=== PATIENT | female | born 1960 | race Two or more races ===

== ENCOUNTER 2016-09-02 15:22 | Outpatient (CLI) | payer BC ==
[2016-09-06 20:18] LABS: *NEISSERIA GONORRHOEAE NAA Negative (Negative); CHLAMYDIA TRACHOMATIS NAA Negative (Negative)
== END 2016-09-02 23:59 | disposition home or self-care (01) ==
LOC: LAB 15:22
PROVIDERS: ATTEND Family Medicine
DX: N76.0 Acute vaginitis (principal); N39.0 Urinary tract infection, site not specified
CPT/HCPCS: 36415; 87086-TC; 87210-TC; 87491; 87591

== ENCOUNTER 2016-09-09 09:42 | Inpatient (IN) | payer BC ==
[~2016-09-09] VITALS: Ht 152.4 cm; Wt 63.5 kg
--- NOTE | 2016-09-09 09:45 | NUR ---
PT AMBULATORY DYSURIA AND URINARY DISCOMFORT X [address] ARVIN MADRIGAL URINE. PLACED ON MONITOR. VSS.
[2016-09-09] MEDS ORDERED: IV NS 0.9% 1,000 ML BAG IV ONE (10:00)
--- NOTE | 2016-09-09 10:00 | NUR ---
BLOOD SAMPLE COLLECTED SENT TO LAB IV ACCESS LAC #18 PATENT AND FLUSHING
[2016-09-09 10:02] LABS: BASOPHILS % (AUTO) 0.3 % (0.0-2.0); EOSINOPHILS # (AUTO) 0.1 /CMM (0.0-0.7); EOSINOPHILS % (AUTO) 1.2 % (0.0-6.0); HEMATOCRIT 46 % (33-45); HEMOGLOBIN 14.9 g/dL (11.5-14.8); LYMPHOCYTES # (AUTO) 1.7 /CMM (0.8-4.8); LYMPHOCYTES % (AUTO) 28.9 % (20.0-44.0); MEAN CORPUSCULAR HEMOGLOBIN 29 PG (26.0-33.0); MEAN CORPUSCULAR HGB CONC 33 g/dl (31.0-36.0); MEAN CORPUSCULAR VOLUME 88 fL (82-100); MONOCYTES # (AUTO) 0.3 /CMM (0.1-1.30); MONOCYTES % (AUTO) 5.6 % (2.0-12.0); NEUTROPHILS # (AUTO) 3.9 /CMM (1.8-8.9); PLATELET COUNT (AUTO) 250 /CMM (150-450); RDW COEFFICIENT OF VARIATION 12.9 (11.5-15.0); RED BLOOD CELL COUNT(AUTO) 5.17 MIL/uL (4.0-5.2)
[2016-09-09] MEDS ORDERED: IV NS 0.9% 1,000 ML ONE (10:07)
[2016-09-09] MEDS ORDERED: IV SET PRIMARY PUMP SET 1 EA INFUS.SET MC ONE ×2 (10:07→17:36)
[2016-09-09 10:12] LABS: CARBON DIOXIDE 28 mmol/L (21-32); CHLORIDE 105 mmol/L (98-107); CREATININE 0.8 mg/dL (0.6-1.3); GFR 74 mL/min (>60); GLUCOSE 144 mg/dL (74-106); SODIUM SERUM 142 mmol/L (136-145); UREA NITROGEN, BLOOD 15 mg/dL (7-18)
--- NOTE | 2016-09-09 10:15 | NUR ---
URINE SAMPLE COLLECTED SENT TO LAB
[2016-09-09 10:19] LABS: APPEARANCE,URINE Cloudy (CLEAR); BILIRUBIN,URINE Negative (NEGATIVE); BLOOD, URINE Trace-lysed Ery/uL (NEGATIVE); COLOR,URINE Yellow (YELLOW); KETONES,URINE Negative (NEGATIVE); LEUKOCYTE ESTERASE ,URINE Large (NEGATIVE); NITRITE, URINE Positive (NEGATIVE); PROTEIN,URINE Negative (NEGATIVE); UGLUCOSE Negative (NEGATIVE); UROBILINOGEN,URINE 0.2 EU/dL (0.2)
[2016-09-09 10:25] LABS: INR 0.97 (0.87-1.13); PROTHROMBIN TIME 10.1 SECS (9.5-12.7)
[2016-09-09] MEDS ORDERED: MEROPENEM 1 G in IV NS 0.9% 100 ML IV ONE (10:30)
[2016-09-09] MEDS ORDERED: DOCU-270 PO (10:32)
[2016-09-09] MEDS ORDERED: CHOL20004 PO (10:32)
[2016-09-09] MEDS ORDERED: RALO60TA PO (10:32)
[2016-09-09 10:37] LABS: ADD URINE CULTURE YES; BACTERIA,URINE 1+ /HPF (None Seen); SQUAMOUS EPITHELIAL CELL,UR Few /HPF (None Seen); WBC,URINE 21-50 /HPF (0-3)
[2016-09-09 10:38] LABS: URINE AMORPHOUS PHOSPHATES Few /HPF (None Seen)
[2016-09-09 11:10] LABS: LACTIC ACID 2.3 mmol/L (0.4-2.0)
--- NOTE | 2016-09-09 11:33 | NUR ---
GAVE REPORT TO [facility] [id number] DR HAYES ADMITTING.
[2016-09-09 11:45] LABS: BILIRUBIN,DIRECT 0.1 mg/dL (0.0-0.2); BILIRUBIN,TOTAL 0.6 mg/dL (0.2-1.0)
--- NOTE | 2016-09-09 11:45 | NUR ---
RN NOTES RECEIVED FROM ER A 55 YEAR OLD FEMALE PER HOSPITAL BED WITH DX OF UTI UNDER THE SERVICE OF DR HAYES. PLACED COMFORTABLY. PATIENT IS AWAKE, ALERT AND ORIENTED. NOT IN ANY FORM OF DISTRESS. STILL WITH BURNING SENSATION UPON URINATION. NO FEVER. ON RA SATURATING AT 97% WITH NO SOB. WITH IV ACCESS ON LEFT AC GG 18 PATENT AND INTACT. AMBULATORY. ROUTINE ADMISSION CARE DONE. VSS. BODY CHECK DONE WITH SKI INTACT. NEEDS ANTICIPATED. CALL LIGHT PLACED WITHIN EASY REACH. NOTIFIED DR HAYES FOR ADMISSION ORDERS.
[2016-09-09] MEDS ORDERED: IMIPENEM/CILASTATIN 1,000 MG in IV NS 0.9% 250 ML IV SCH (12:00)
[2016-09-09] MEDS ORDERED: MAGNESIUM HYDROXIDE 30 ML UDC PO PRN (13:00)
[2016-09-09] MEDS ORDERED: ONDANSETRON HCL/PF 4 MG/2 ML VIAL IVP PRN (13:00)
[2016-09-09] MEDS ORDERED: HYDROCODONE/APAP 5/325MG 1 EACH TABLET PO PRN (13:00)
[2016-09-09] MEDS ORDERED: Z GUARD REMEDY 2 OZ OINT TP PRN (13:00)
[2016-09-09] MEDS ORDERED: CEFTRIAXONE 1 G in IV D5W 50 ML IV SCH (13:00)
[2016-09-09] MEDS ORDERED: ACETAMINOPHEN 325 MG TABLET PO PRN (13:00)
[2016-09-09] MEDS ORDERED: MAG HYDROX/AL HYDROX/SIMETH 30 ML UDC PO PRN (13:00)
[2016-09-09] MEDS ORDERED: ZOLPIDEM TARTRATE 5 MG TABLET PO PRN (13:00)
[2016-09-09 13:17] LABS: LACTIC ACID REFLEX 0.9 mmol/L (0.4-1.9)
[2016-09-09] MEDS: CHOLECALCIFEROL 1,000 UNIT TABLET (VIT D3) PO SCH (15:26)
[2016-09-09 16:00] VITALS: BP_SYST 102; BP_DIAS 57; BP_DIAS 98
[2016-09-09] MEDS: MEROPENEM 1 G in IV NS 0.9% 100 ML IV SCH (18:00)
--- NOTE | 2016-09-09 19:00 | NUR ---
MS RN OPENING NOTE PATIENT IS AWAKE, NO S/S OF DISTRESS, NO CHEST PAIN. NO SOB OR DISTRESS NOTED. IN STABLE CONDITION. SAFETY MEASURES IMPLEMENTED. IV INTACT NO S/S OF INFILTRATION NOTED. CALL LIGHT WITHIN REACH. ON LOW BED TO ENSURE SAFETY. WILL CONTINUE TO MONITOR
[2016-09-09 20:00] VITALS: BP 131/61
[2016-09-09] MEDS: IV NS 0.9% 1,000 ML IV PRN (21:38)
[2016-09-09] MEDS ORDERED: SECONDARY IV SET 1 EA INFUS.SET MC ONE (22:45)
[2016-09-10] MEDS: MEROPENEM 1 G in IV NS 0.9% 100 ML IV SCH ×3 (01:29→17:42)
--- NOTE | 2016-09-10 06:41 | NUR ---
MS RN CLOSING NOTES PATIENT COMFORTABLY IN BED ASLEEP AND EASILY AWAKEN, ON ATB WITH NO A/R NOTED. IV HYDRATION RUNNING AT 75CC TOLERATED WELL. ALERT AND VERBALLY X 4 RESPONSIVE DENIES PAIN OR DISTRESS, RESPONDS APPROPRIATELY TO VERBAL STIMULI, RESPIRATIONS EVEN UNLABORED BREATH SOUNDS. APICAL PULSE REGULAR; NO S/S OF BLEEDING NOTED. GOOD SKIN CARE PROVIDED. IN STABLE CONDITION WITH NO SOB NO S/S OF DISTRESS NO NAUSEA AND VOMITING NO HEADACHE NO PAIN, NO COMPLAIN OF CHEST PAIN SAFETY ENVIRONMENT PROVIDED. FREE OF CLUTTERS, NEEDS ATTENDED AND ANTICIPATED, NURSING CARE RENDERED, KEPT CLEAN AND DRY AND COMFORTABLE. ALL DUE MEDS WAS GIVEN. ASSISTED PATIENT TO REPOSITION. CALL LIGHT IN REACH, BED LOWERED AND LOCKED, SR X2 FOR SAFETY AND WILL ENDORSE CONTINUE PLAN OF CARE.
[2016-09-10 06:53] LABS: BASOPHILS % (AUTO) 0.5 % (0.0-2.0); EOSINOPHILS # (AUTO) 0.1 /CMM (0.0-0.7); EOSINOPHILS % (AUTO) 1.2 % (0.0-6.0); HEMATOCRIT 43 % (33-45); HEMOGLOBIN 14.3 g/dL (11.5-14.8); LYMPHOCYTES # (AUTO) 2.1 /CMM (0.8-4.8); LYMPHOCYTES % (AUTO) 35.4 % (20.0-44.0); MEAN CORPUSCULAR HEMOGLOBIN 29 PG (26.0-33.0); MEAN CORPUSCULAR HGB CONC 34 g/dl (31.0-36.0); MEAN CORPUSCULAR VOLUME 87 fL (82-100); MONOCYTES # (AUTO) 0.5 /CMM (0.1-1.30); MONOCYTES % (AUTO) 7.6 % (2.0-12.0); NEUTROPHILS # (AUTO) 3.3 /CMM (1.8-8.9); NEUTROPHILS % (AUTO) 55.3 % (43.0-81.0); PLATELET COUNT (AUTO) 180 /CMM (150-450); RDW COEFFICIENT OF VARIATION 13.7 (11.5-15.0); RED BLOOD CELL COUNT(AUTO) 4.89 MIL/uL (4.0-5.2)
--- NOTE | 2016-09-10 07:05 | NUR ---
MS RN OPENING NOTES RECEIVED PT. FROM NIGHTSHIFT NURSE IN STABLE CONDITION. PT. IS AWAKE AND LYING IN BED. NO SOB OR SIGNS OF DISTRESS NOTES. BREATHING IS EVEN AND UNLABORED. IV ON LEFT AC 18G RUNNING NS AT 75ML/HE. IV SITE PATENT AND INTACT. NO REDNESS OR INFILTRATION. PT. TOLERATING INFUSION WELL. BED IN LOW LOCKED POSITION, SIDE RAILS UP X2, CALL LIGHT WITHIN PT. REACH. WILL CONTINUE TO MONITOR.
[2016-09-10 07:54] LABS: ALBUMIN 3.4 g/dL (3.4-5.0); BILIRUBIN,TOTAL 0.6 mg/dL (0.2-1.0); CALCIUM, SERUM 8.5 mg/dL (8.5-10.1); CREATININE 0.6 mg/dL (0.6-1.3); MAGNESIUM 1.9 mg/dL (1.8-2.4); PHOSPHORUS 4.1 mg/dL (2.5-4.9); TOTAL PROTEIN, SERUM 6.7 g/dL (6.4-8.2)
[2016-09-10 08:00] VITALS: BP 103/50
[2016-09-10] MEDS: DOCUSATE SODIUM 100 MG CAPSULE PO SCH (09:29)
[2016-09-10] MEDS: PANTOPRAZOLE 40 MG TABLET.DR PO SCH (09:30)
[2016-09-10] MEDS: CHOLECALCIFEROL 1,000 UNIT TABLET (VIT D3) PO SCH (09:30)
[2016-09-10] MEDS: RALOXIFENE 60 MG TABLET PO SCH (09:32)
[2016-09-10 16:01] VITALS: BP 114/62
--- NOTE | 2016-09-10 18:33 | NUR ---
MS RN closing NOTES PT IN STABLE CONDITION, AWAKE AND LYING IN BED. A/O X4. NO SOB OR SIGNS OF DISTRESS NOTES. BREATHING IS EVEN AND UNLABORED. IV ON LEFT AC 18G RUNNING NS AT 75ML/HR. IV SITE PATENT AND INTACT. NO REDNESS OR INFILTRATION. PT. TOLERATING INFUSION WELL. BED IN LOW LOCKED POSITION, SIDE RAILS UP X2, CALL LIGHT WITHIN PT. REACH. ALL ORDERS CARRIED OUT THROUGHOUT SHIFT. WILL ENDORSE TO NIGHTSHIFT NURSE FOR HELLEN
--- NOTE | 2016-09-10 19:30 | NUR ---
MS/RN NOTES RECEIVED PT. SITTING UP IN BED. AWAKE, ALERT AND ORIENTED X4. BREATHING EVEN AND UNLABORED ON ROOM AIR. NO SOB, RESPIRATORY DISTRESS OR COMPLAINTS OF PAIN NOTED AT THIS TIME. PT. WITH LEFT AC 18 GAUGE PERIPHERAL IV PRESENT, PATENT AND INTACT ADMINISTERING TO PT. NS @ 75ML/HR. BED IN LOWEST POSITION, CALL LIGHT WITHIN REACH, WILL CONTINUE TO MONITOR.
[2016-09-10 20:00] VITALS: BP_SYST 119; BP_SYST 126; BP_DIAS 61; BP_DIAS 96
[2016-09-11] MEDS: MEROPENEM 1 G in IV NS 0.9% 100 ML IV SCH ×2 (01:53→09:30)
--- NOTE | 2016-09-11 07:32 | NUR ---
RN OPEN NOTES RECEIVED REPORT FROM QC TECH NURSE. PATIENT IS IN BED, SLEEPING. ARISE TO CALLING HER NAME. DENIED PAIN. NO SIGNS AND SYMPTOMS OF DISTRESS. BED IN LOW POSITION, LOCKED AND 2 SIDE RAILS ARE UP. WILL CONTINUE TO MONITOR AND ASSESS PATIENT.
--- NOTE | 2016-09-11 07:41 | NUR ---
MS/RN NOTES PT. LYING IN BED RESTING. BREATHING EVEN AND UNLABORED ON ROOM AIR. NO SOB, RESPIRATORY DISTRESS OR COMPLAINTS OF PAIN NOTED AT THIS TIME AND THROUGHOUT SHIFT. PT. WITH LEFT AC 18 GAUGE PERIPHERAL IV PRESENT, PATENT AND INTACT ADMINISTERING TO PT. NS @ 75ML/HR. ALL PT. NEEDS MET. BED IN LOWEST POSITION, CALL LIGHT WITHIN REACH, WILL ENDORSE TO DAYSHIFT NURSE FOR CONTINUITY OF CARE.
[2016-09-11 08:00] VITALS: BP 120/63
[2016-09-11] MEDS ORDERED: SECONDARY IV SET 1 EA INFUS.SET MC ONE (09:23)
[2016-09-11] MEDS ORDERED: SET RED CAP 1 EA INFUS.SET MC ONE (09:23)
[2016-09-11] MEDS: PANTOPRAZOLE 40 MG TABLET.DR PO SCH (09:36)
[2016-09-11] MEDS: DOCUSATE SODIUM 100 MG CAPSULE PO SCH (09:36)
[2016-09-11] MEDS: RALOXIFENE 60 MG TABLET PO SCH (09:36)
[2016-09-11] MEDS: CHOLECALCIFEROL 1,000 UNIT TABLET (VIT D3) PO SCH (09:36)
[2016-09-11] MEDS: IV NS 0.9% 1,000 ML IV PRN (10:32)
[2016-09-11] MEDS ORDERED: ERTA1VIA2 IV (11:31)
--- NOTE | 2016-09-11 16:10 | NUR ---
RESIDENTIAL CARE FACILITY MANAGER NOTES PATIENT DISCHARGE INSTRUCTION RECEIVED AND EXPLAINED TO PATIENT. PATIENT VERBALIZED UNDERSTANDING. PATIENT IS BEING DISCHARGE HOME WITH HOME HEALTH. PATIENT IS BEING DISCHARGE IN A STABLE CONDITION. NO SIGNS AND SYMPTOMS OF DISTRESS. DENIED PAIN. PATIENT WAS ESCORTED TO [facility] VIA WHEELCHAIR ACCOMPANIED BY A [employer]EX FOAM WORKER. PATIENT WAS DISCHARGE WITH A MIDLINE ON HER UPPER RIGHT ARM AND HOME HEALTH. PERIPHERAL IV DISCONTINUED. IV BAND REMOVED.
== END 2016-09-11 16:30 | disposition home health service (06) | DRG 690 ==
LOC: ER 09:43 → MED 11:33
PROVIDERS: ADMIT Family Medicine; ATTEND Family Medicine
PROC: 05H533Z Insertion of Infusion Device into Right Subclavian Vein, Percutaneous Approach (ICD-10-PCS; principal; 2016-09-11)
DX: N39.0 Urinary tract infection, site not specified (principal); E87.2 Acidosis; M19.90 Unspecified osteoarthritis, unspecified site; B96.20 Unspecified Escherichia coli [E. coli] as the cause of diseases classified elsewhere; Z16.12 Extended spectrum beta lactamase (ESBL) resistance; E66.9 Obesity, unspecified; Z68.27 Body mass index [BMI] 27.0-27.9, adult
CPT/HCPCS: 36415; 36569; 76770-TC; 80048-TC; 80053-TC; 81000-TC; 82247-TC; 82248-TC; 83605-TC; 83735-TC; 84100-TC; 85025-TC; 85730-TC; 87040-TC; 87081-TC; 87086-TC; 87186-TC; A4606; J0696; J0743; J2185; J7030; J7050; J7060; Z7610

== ENCOUNTER 2016-09-23 15:12 | Emergency (ER) | payer BC, OTHER ==
[~2016-09-23] VITALS: Ht 152.4 cm; Wt 59.0 kg
[~2016-09-23 15:12] MED LIST: CHOL20004 PO; DOCU-270 PO; ERTA1VIA2 IV; RALO60TA PO
[2016-09-23 15:25] VITALS: BP 139/88
== END 2016-09-23 15:38 | disposition home or self-care (01) ==
LOC: ER 15:16
DX: Z45.2 Encounter for adjustment and management of vascular access device (principal)
CPT/HCPCS: A4606; Z7502; Z7610

== ENCOUNTER 2016-12-14 11:57 | Outpatient (CLI) | payer BC, OTHER | END 2016-12-14 23:59 | disposition home or self-care (01) | LOC: LAB 11:57 | PROVIDERS: ATTEND Family Medicine | DX: R07.9 Chest pain, unspecified (principal) | CPT/HCPCS: 71020-TC ==

== ENCOUNTER 2016-12-15 09:15 | Outpatient (CLI) | payer BC, OTHER ==
[2016-12-15 10:05] LABS: BASOPHILS % (AUTO) 0.4 % (0.0-2.0); HEMATOCRIT 45 % (33-45); HEMOGLOBIN 15.5 g/dL (11.5-14.8); LYMPHOCYTES # (AUTO) 1.5 /CMM (0.8-4.8); LYMPHOCYTES % (AUTO) 34.2 % (20.0-44.0); MEAN CORPUSCULAR HEMOGLOBIN 30 PG (26.0-33.0); MEAN CORPUSCULAR HGB CONC 35 g/dl (31.0-36.0); MEAN CORPUSCULAR VOLUME 87 fL (82-100); MONOCYTES # (AUTO) 0.3 /CMM (0.1-1.30); MONOCYTES % (AUTO) 7.2 % (2.0-12.0); NEUTROPHILS # (AUTO) 2.6 /CMM (1.8-8.9); NEUTROPHILS % (AUTO) 57.2 % (43.0-81.0); PLATELET COUNT (AUTO) 214 /CMM (150-450); RDW COEFFICIENT OF VARIATION 13.7 (11.5-15.0); RED BLOOD CELL COUNT(AUTO) 5.15 MIL/uL (4.0-5.2); WHITE BLOOD COUNT (AUTO) 4.5 K/uL (4.3-11.0)
[2016-12-15 10:30] LABS: ALBUMIN 3.9 g/dL (3.4-5.0); BILIRUBIN,TOTAL 0.6 mg/dL (0.2-1.0); CALCIUM, SERUM 8.5 mg/dL (8.5-10.1); CREATININE 0.6 mg/dL (0.6-1.3); POTASSIUM 3.9 mmol/L (3.5-5.1); TOTAL PROTEIN, SERUM 7.2 g/dL (6.4-8.2)
[2016-12-15 10:44] LABS: T4 (THYROXINE) 7.1 ug/dL (4.7-13.3); THYROID STIMULATING HORMONE 1.325 uIU/mL (0.358-3.74)
[2016-12-16 08:13] LABS: T3 TOTAL 127 ng/dL (71-180)
[2016-12-16 17:13] LABS: H. PYLORI AB IgA <9.0 units (0.0-8.9)
== END 2016-12-15 23:59 | disposition home or self-care (01) ==
LOC: LAB 09:15
PROVIDERS: ATTEND Family Medicine
DX: R07.9 Chest pain, unspecified (principal); E78.5 Hyperlipidemia, unspecified; J45.909 Unspecified asthma, uncomplicated; R79.89 Other specified abnormal findings of blood chemistry
CPT/HCPCS: 36415; 80053-TC; 80061-TC; 83735-TC; 84436-TC; 84439-TC; 84443-TC; 84480; 85025-TC; 86677

== ENCOUNTER 2017-02-13 11:43 | Outpatient (CLI) | payer BC, OTHER ==
[2017-02-15 13:15] LABS: *NEISSERIA GONORRHOEAE NAA Negative (Negative); CHLAMYDIA TRACHOMATIS NAA Negative (Negative)
== END 2017-02-13 23:59 | disposition home or self-care (01) ==
LOC: LAB 11:43
PROVIDERS: ATTEND Family Medicine
DX: Z12.72 Encounter for screening for malignant neoplasm of vagina (principal); Z11.3 Encounter for screening for infections with a predominantly sexual mode of transmission
CPT/HCPCS: 87491; 87591; 88142

== ENCOUNTER 2017-03-13 11:34 | Outpatient (CLI) | payer BC, OTHER | END 2017-03-13 23:59 | disposition home or self-care (01) | LOC: LAB 11:34 | PROVIDERS: ATTEND Family Medicine | DX: M25.561 Pain in right knee (principal); M25.562 Pain in left knee; R10.9 Unspecified abdominal pain | CPT/HCPCS: 36415; 73562; 86431-TC ==

== ENCOUNTER 2017-03-16 10:54 | Outpatient (CLI) | payer BC, OTHER | END 2017-03-16 23:59 | disposition home or self-care (01) | LOC: US 10:54 | PROVIDERS: ATTEND Family Medicine | DX: K76.0 Fatty (change of) liver, not elsewhere classified (principal); M25.569 Pain in unspecified knee | CPT/HCPCS: 76700-TC ==

== ENCOUNTER 2017-05-16 12:42 | Outpatient (CLI) | payer BC, OTHER ==
[2017-05-18 06:08] LABS: *IFE A/G RATIO 1.4 (0.7-1.7); *IFE ALPHA-2-GLOBULIN 0.6 g/dL (0.4-1.0); *IFE GAMMA GLOBULIN 1.2 g/dL (0.4-1.8); *IFE M-SPIKE Not Observed g/dL (Not Observed); *IFEALPHA-1-GLOBULIN 0.2 g/dL (0.0-0.4); IMMUNOGLOBULIN A, SERUM 157 mg/dL (87-352); IMMUNOGLOBULIN G, SERUM 1166 mg/dL (700-1600); IMMUNOGLOBULIN M, SERUM 56 mg/dL (26-217)
== END 2017-05-16 23:59 | disposition home or self-care (01) ==
LOC: LAB 12:42
PROVIDERS: ATTEND Family Medicine
DX: M54.5 Low back pain (principal)
CPT/HCPCS: 36415; 82784; 84155; 84165; 86334

== ENCOUNTER 2017-05-23 09:49 | Outpatient (CLI) | payer BC, OTHER | END 2017-05-23 23:59 | disposition home or self-care (01) | LOC: MRI 09:49 | PROVIDERS: ATTEND Family Medicine | DX: M51.36 Other intervertebral disc degeneration, lumbar region (principal); M48.061 Spinal stenosis, lumbar region without neurogenic claudication; M25.48 Effusion, other site; M89.8X8 Other specified disorders of bone, other site | CPT/HCPCS: 72148-TC ==

== ENCOUNTER 2017-09-05 16:21 | Outpatient (CLI) | payer BC, OTHER | END 2017-09-05 23:59 | disposition home or self-care (01) | LOC: LAB 16:21 | PROVIDERS: ATTEND Family Medicine | DX: N39.0 Urinary tract infection, site not specified (principal) | CPT/HCPCS: 87086-TC; 87186-TC ==

== ENCOUNTER 2018-05-30 10:41 | Outpatient (CLI) | payer BC ==
[2018-05-30] MEDS ORDERED: GADODIAMIDE 2.5 MMOL/5 ML VIAL IJ ONE (10:42)
[2018-05-30] MEDS ORDERED: GADODIAMIDE 5 MMOL/10 ML VIAL IJ ONE (10:42)
== END 2018-05-30 23:59 | disposition home or self-care (01) ==
LOC: MRI 10:41
PROVIDERS: ATTEND Family Medicine
DX: R16.0 Hepatomegaly, not elsewhere classified (principal)
CPT/HCPCS: 74183-TC; A9579

== ENCOUNTER 2018-06-26 14:58 | Outpatient (CLI) | payer BC ==
[2018-06-26 15:39] LABS: BASOPHILS % (AUTO) 0.4 % (0.0-2.0); HEMATOCRIT 44 % (33-45); HEMOGLOBIN 14.9 g/dL (11.5-14.8); LYMPHOCYTES # (AUTO) 1.5 /CMM (0.8-4.8); LYMPHOCYTES % (AUTO) 28.7 % (20.0-44.0); MEAN CORPUSCULAR HGB CONC 34 g/dl (31.0-36.0); MEAN CORPUSCULAR VOLUME 90 fL (82-100); MONOCYTES # (AUTO) 0.3 /CMM (0.1-1.30); MONOCYTES % (AUTO) 6.6 % (2.0-12.0); NEUTROPHILS # (AUTO) 3.3 /CMM (1.8-8.9); NEUTROPHILS % (AUTO) 63.3 % (43.0-81.0); PLATELET COUNT (AUTO) 222 /CMM (150-450); RED BLOOD CELL COUNT(AUTO) 4.86 MIL/uL (4.0-5.2); WHITE BLOOD COUNT (AUTO) 5.2 K/uL (4.3-11.0)
== END 2018-06-26 23:59 | disposition home or self-care (01) ==
LOC: LAB 14:58
PROVIDERS: ATTEND Internal Medicine Hematology & Oncology
DX: D75.1 Secondary polycythemia (principal)
CPT/HCPCS: 36415; 83891; 83900; 83909; 83912; 85025-TC

== ENCOUNTER 2018-07-13 13:28 | Outpatient (CLI) | payer BC ==
[2018-07-13 14:08] LABS: BASOPHILS % (AUTO) 0.8 % (0.0-2.0); EOSINOPHILS % (AUTO) 1.1 % (0.0-6.0); HEMATOCRIT 45 % (33-45); HEMOGLOBIN 15.2 g/dL (11.5-14.8); LYMPHOCYTES # (AUTO) 1.5 /CMM (0.8-4.8); LYMPHOCYTES % (AUTO) 31.7 % (20.0-44.0); MEAN CORPUSCULAR HGB CONC 34 g/dl (31.0-36.0); MEAN CORPUSCULAR VOLUME 90 fL (82-100); MONOCYTES # (AUTO) 0.4 /CMM (0.1-1.30); MONOCYTES % (AUTO) 8.1 % (2.0-12.0); NEUTROPHILS # (AUTO) 2.8 /CMM (1.8-8.9); NEUTROPHILS % (AUTO) 58.3 % (43.0-81.0); PLATELET COUNT (AUTO) 176 /CMM (150-450); WHITE BLOOD COUNT (AUTO) 4.8 K/uL (4.3-11.0)
[2018-07-13 14:47] LABS: ALBUMIN 3.9 g/dL (3.4-5.0); BILIRUBIN,TOTAL 0.6 mg/dL (0.2-1.0); CREATININE 0.7 mg/dL (0.6-1.3); POTASSIUM 3.7 mmol/L (3.5-5.1); TOTAL PROTEIN, SERUM 7.5 g/dL (6.4-8.2)
== END 2018-07-13 23:59 | disposition home or self-care (01) ==
LOC: LAB 13:28
PROVIDERS: ATTEND Internal Medicine Hematology & Oncology
DX: M19.90 Unspecified osteoarthritis, unspecified site (principal); D75.1 Secondary polycythemia; M81.0 Age-related osteoporosis without current pathological fracture
CPT/HCPCS: 36415; 80053-TC; 85025-TC

== ENCOUNTER 2019-01-16 14:45 | Outpatient (CLI) | payer BC | END 2019-01-16 23:59 | disposition home or self-care (01) | LOC: LAB 14:45 | PROVIDERS: ATTEND Internal Medicine Hematology & Oncology | DX: Z75.3 Unavailability and inaccessibility of health-care facilities (principal) ==

== ENCOUNTER 2021-09-13 10:07 | Outpatient (CLI) | payer BC | END 2021-09-13 23:59 | disposition home or self-care (01) | LOC: US 10:07 | PROVIDERS: ATTEND Family Medicine | DX: R10.32 Left lower quadrant pain (principal); Z90.710 Acquired absence of both cervix and uterus | CPT/HCPCS: 76856-TC ==

== ENCOUNTER 2021-10-01 11:19 | Outpatient (CLI) | payer BC ==
[2021-10-01 12:31] LABS: BASOPHILS % (AUTO) 0.3 % (0.0-2.0); EOSINOPHILS % (AUTO) 1.1 % (0.0-6.0); HEMATOCRIT 41 % (33-45); LYMPHOCYTES # (AUTO) 1.7 K/uL (0.8-4.8); LYMPHOCYTES % (AUTO) 36.7 % (20.0-44.0); MEAN CORPUSCULAR HGB CONC 34 g/dl (31.0-36.0); MEAN CORPUSCULAR VOLUME 87 fL (82-100); MONOCYTES # (AUTO) 0.5 K/uL (0.1-1.30); MONOCYTES % (AUTO) 10.3 % (2.0-12.0); NEUTROPHILS # (AUTO) 2.4 K/uL (1.8-8.9); NEUTROPHILS % (AUTO) 51.6 % (43.0-81.0); PLATELET COUNT (AUTO) 213 K/uL (150-450); RED BLOOD CELL COUNT(AUTO) 4.74 MIL/uL (4.0-5.2); WHITE BLOOD COUNT (AUTO) 4.6 K/uL (4.3-11.0)
[2021-10-01 13:02] LABS: ALBUMIN 3.8 g/dL (3.4-5.0); BILIRUBIN,TOTAL 0.5 mg/dL (0.2-1.0); CALCIUM, SERUM 8.5 mg/dL (8.5-10.1); CREATININE 0.7 mg/dL (0.6-1.3); POTASSIUM 4.2 mmol/L (3.5-5.1); TOTAL PROTEIN, SERUM 7.2 g/dL (6.4-8.2)
[2021-10-01 17:15] LABS: THYROID STIMULATING HORMONE 2.897 uIU/mL (0.358-3.74)
== END 2021-10-01 23:59 | disposition home or self-care (01) ==
LOC: RAD 11:19
PROVIDERS: ATTEND Family Medicine
DX: E55.9 Vitamin D deficiency, unspecified (principal); E03.9 Hypothyroidism, unspecified; M43.16 Spondylolisthesis, lumbar region; Z79.899 Other long term (current) drug therapy
CPT/HCPCS: 36415; 72100-TC; 80053-TC; 80061-TC; 82306; 84439-TC; 84443-TC; 85025-TC

== ENCOUNTER 2022-07-15 11:04 | Outpatient (CLI) | payer BC ==
[2022-07-15] MEDS ORDERED: BARIUM SULFATE 98% 135 ML SUSP.RECON PO ONE (11:21)
== END 2022-07-15 23:59 | disposition home or self-care (01) ==
LOC: RAD 11:04
PROVIDERS: ATTEND Family Medicine
DX: T57.91XA Toxic effect of unspecified inorganic substance, accidental (unintentional), initial encounter (principal); Y92.89 Other specified places as the place of occurrence of the external cause
CPT/HCPCS: 74230-TC

== ENCOUNTER 2022-09-01 11:02 | Outpatient (CLI) | payer BC ==
[2022-09-01 12:26] LABS: BASOPHILS % (AUTO) 0.5 % (0.0-2.0); EOSINOPHILS % (AUTO) 1.1 % (0.0-6.0); HEMATOCRIT 44 % (33-45); HEMOGLOBIN 14.7 g/dL (11.5-14.8); LYMPHOCYTES # (AUTO) 1.6 K/uL (0.8-4.8); LYMPHOCYTES % (AUTO) 36.4 % (20.0-44.0); MEAN CORPUSCULAR HGB CONC 33 g/dl (31.0-36.0); MEAN CORPUSCULAR VOLUME 86 fL (82-100); MONOCYTES # (AUTO) 0.3 K/uL (0.1-1.30); MONOCYTES % (AUTO) 7.5 % (2.0-12.0); NEUTROPHILS # (AUTO) 2.5 K/uL (1.8-8.9); NEUTROPHILS % (AUTO) 54.5 % (43.0-81.0); PLATELET COUNT (AUTO) 218 K/uL (150-450); RED BLOOD CELL COUNT(AUTO) 5.07 MIL/uL (4.0-5.2); WHITE BLOOD COUNT (AUTO) 4.5 K/uL (4.3-11.0)
[2022-09-01 12:44] LABS: BILIRUBIN,TOTAL 0.6 mg/dL (0.2-1.0); CALCIUM, SERUM 9.4 mg/dL (8.5-10.1); CREATININE 0.7 mg/dL (0.6-1.3); POTASSIUM 3.9 mmol/L (3.5-5.1); TOTAL PROTEIN, SERUM 7.4 g/dL (6.4-8.2)
== END 2022-09-01 23:59 | disposition home or self-care (01) ==
LOC: US 11:02
PROVIDERS: ATTEND Family Medicine
DX: K76.0 Fatty (change of) liver, not elsewhere classified (principal); R10.9 Unspecified abdominal pain; R10.2 Pelvic and perineal pain; Z90.711 Acquired absence of uterus with remaining cervical stump
CPT/HCPCS: 36415; 76700-TC; 76856-TC; 80053-TC; 82150-TC; 83690-TC; 85025-TC